=== PATIENT | female | born 1970 | race Caucasian/White ===

== ENCOUNTER 2020-12-20 09:00 | Outpatient (RCR) | payer OTHER | END 2021-01-07 | LOC: PT 09:00 | PROVIDERS: ATTEND Specialist | DX: M17.12 Unilateral primary osteoarthritis, left knee (principal); M62.81 Muscle weakness (generalized); M54.50 Low back pain, unspecified; M54.16 Radiculopathy, lumbar region ==

== ENCOUNTER 2021-04-20 21:47 | Emergency (ER) ==
[~2021-04-20] VITALS: Ht 182.9 cm; Wt 65.8 kg
== END 2021-04-20 22:17 | disposition home or self-care (01) ==
LOC: ER 21:50
DX: K59.00 Constipation, unspecified (principal); K62.89 Other specified diseases of anus and rectum; E11.9 Type 2 diabetes mellitus without complications
CPT/HCPCS: 99282